=== PATIENT | male | born 1985 | race Caucasian/White ===

== ENCOUNTER 2022-06-05 13:58 | Emergency (ER) | payer BC, SELFPAY ==
[2022-06-05 14:12] VITALS: BP 127/73; PULSE 87; RESP 16; TEMP 36.5; O2SAT 99
--- NOTE | 2022-06-05 14:47 | ED.GENADULT ---
HPI - General Adult General Chief complaint: Ear Stated complaint: ear pain Source: patient Mode of arrival: ambulatory Limitations: no limitations History of Present Illness HPI narrative: Patient presents for evaluation of sore throat and bilateral ear pain. He states 2 days ago he was at work when he felt some chills. He went home and put on some warm clothing and laid under a blanket in an attempt to sweat it out . He developed a sore throat and started taking dayquil, nyquil and some throat lozenges. He states that these medications did assist with his symptoms. He states he has noted some muffled hearing in his right ear. He also reports a popping sensation in both ears. Denies any drainage from the ears. He has an occasional productive cough which is chronic, and that he attributes to smoking. No recent sick contacts. No personal hx of COVID. He has received COVID vaccination. No additional complaints or concerns. Related Data Allergies Allergy/AdvReac Type Severity Reaction Status Date / Time Penicillins Allergy Intermediate Rash Verified 06/05/22 14:05 Review of Systems Review of Systems: CONSTITUTIONAL:Reports recent chills, none currently. Denies fever or sweats. EYES: Denies visual changes, redness, or discharge. ENT: Reports sore throat, bilateral otalgia, muffled hearing and popping sensation in the ears. CARDIOVASCULAR: Denies chest pain, palpitations, or edema. RESPIRATORY: Reports chronic cough, unchanged. GASTROINTESTINAL: Denies abdominal pain, nausea, vomiting, or diarrhea. GENITOURINARY: Denies dysuria or hematuria. SKIN: Denies rash or itching. MUSCULOSKELETAL: Denies back pain, joint pain, or myalgia. NEUROLOGIC: Denies headache, numbness, dizziness, or weakness. PSYCHIATRIC: Denies anxiety or depression. [facility] Past Medical History Medical History Anxiety Arthritis Headache Leg pain Migraine Tired Surgical History Surgical History History of shoulder surgery Family History Family History Mother Lung cancer Depression Anxiety Social History Social History Smoking packs per day: 0.25 Smoking cigarettes per day: 5.0 Smoking status: Current some day smoker Tobacco type: cigarettes Second hand tobacco smoke exposure: No Alcohol intake: current Alcohol use details: Beer. Social Substance use: never Substance use type: does not use Gender identity (if verbalized by the patient): Male Course Course Emergency Course: GENERAL: Well-appearing, well-nourished, and in no acute distress. HEAD: Normocephalic, atraumatic. EYES: PERRLA and EOMI. ENT: Nares clear, no rhinorrhea or epistaxis. Mucous membranes moist. Bilateral tonsillar enlargement and erythema without exudate. Uvula is midline. Bilateral tympanic membrane erythema with middle ear fluid NECK: Supple. No adenopathy or masses. No carotid bruits or JVD CHEST: Clear to auscultation. No respiratory distress. No wheezes rales or rhonchi HEART: Regular rate and rhythm. No murmur heard. Normal peripheral pulses. ABDOMEN: Soft, nontender, nondistended, normal active bowel sounds. EXTREMITIES: Normal range of motion. No edema. SKIN: Warm, dry, no rash. NEURO: No focal deficits. Alert and oriented x3. PSYCH: Normal mood and affect. Level of Care: Express Care Visit Vital Signs Vital signs: Vital Signs Temperature 36.5 C 06/05/22 14:12 Pulse Rate 87 06/05/22 14:12 Respiratory Rate 16 06/05/22 14:12 Blood Pressure 127/73 06/05/22 14:12 Pulse Oximetry 99 06/05/22 14:12 Oxygen Delivery Room Air 06/05/22 14:12 Temperature 36.5 C 06/05/22 14:12 Pulse Rate 87 06/05/22 14:12 Respiratory Rate 16 06/05/22 14:12 Blood Pressure 127/73
== END 2022-06-05 15:21 | disposition home or self-care (01) ==
PROVIDERS: Emergency Provider Nurse Practitioner; PCP Internal Medicine
DX: J02.9 Acute pharyngitis, unspecified (principal); M19.90 Unspecified osteoarthritis, unspecified site; F17.210 Nicotine dependence, cigarettes, uncomplicated
CPT/HCPCS: 87081; 87880; 99213; G0463